=== PATIENT | male | born 1955 | race Two or more races ===

== ENCOUNTER 2020-03-06 18:22 | Emergency (ER) | payer OTHER ==
[~2020-03-06] VITALS: Ht 175.3 cm; Wt 88.5 kg
[2020-03-06] MEDS ORDERED: FINASTERIDE5 MG (18:47)
[2020-03-06] MEDS ORDERED: ATORVASTATIN CA10 MG (18:47)
== END 2020-03-06 21:27 | disposition home or self-care (01) ==
LOC: ER 18:22
DX: R00.0 Tachycardia, unspecified (principal)

== ENCOUNTER 2022-01-01 04:31 | Emergency (ER) | payer OTHER ==
[~2022-01-01] VITALS: Ht 175.3 cm; Wt 82.6 kg
[~2022-01-01 04:31] MED LIST: ATORVASTATIN CA10 MG; FINASTERIDE5 MG
[2022-01-01] MEDS ORDERED: MEDROLPACK PO (08:13)
== END 2022-01-01 08:27 | disposition home or self-care (01) ==
LOC: ER 04:31
DX: R06.02 Shortness of breath (principal); R07.89 Other chest pain; I95.9 Hypotension, unspecified; R53.81 Other malaise; R00.2 Palpitations; Z88.0 Allergy status to penicillin; Z88.6 Allergy status to analgesic agent; Z20.822 Contact with and (suspected) exposure to COVID-19

== ENCOUNTER 2022-05-30 10:45 | Day surgery (SDC) | payer OTHER ==
[~2022-05-30] VITALS: Ht 175.3 cm; Wt 86.2 kg
[~2022-05-30 10:45] MED LIST changes: +MEDROLPACK PO
[2022-05-30] MEDS ORDERED: TYLENOL ARTHRI650 MG PO (14:00)
[2022-05-30] MEDS ORDERED: TRAMADOL HCL50 MG PO (14:00)
[2022-05-30] MEDS ORDERED: MIRALAX17 GM PO (14:00)
[2022-05-30] MEDS ORDERED: NEURONTIN300 MG PO (14:00)
== END 2022-05-30 22:10 | disposition home or self-care (01) ==
LOC: CIR.AMB 10:45
PROVIDERS: ATTEND Surgery
DX: K40.20 Bilateral inguinal hernia, without obstruction or gangrene, not specified as recurrent (principal); I10 Essential (primary) hypertension; R10.9 Unspecified abdominal pain; Z03.818 Encounter for observation for suspected exposure to other biological agents ruled out; Z20.822 Contact with and (suspected) exposure to COVID-19; Z88.0 Allergy status to penicillin; Z88.6 Allergy status to analgesic agent; K42.9 Umbilical hernia without obstruction or gangrene
CPT/HCPCS: 49650; 49591; C1781